=== PATIENT | male | born 1960 | race Hispanic/Latino ===

== ENCOUNTER 2025-02-16 19:40 | Emergency (ER) | payer SELFPAY ==
[~2025-02-16] VITALS: Ht 180.3 cm; Wt 83.0 kg
--- NOTE | 2025-02-16 19:50 | ERN ---
General Chief Complaint: Suicidal Ideation Stated Complaint: C/O SUICIDAL IDEATION Time Seen by MD: 19:42 Source: patient History of Present Illness Initial Comments Patient is a 64-year-old male coming in depression anxiety suicidal ideation. Per patient he does not have a plan but this has been ongoing for three years. States he recently retired were feels very lonely and has been contemplating suicide long with the as he states he fell earlier in his experiencing chest pain as well. Allergies: Coded Allergies: No Known Drug Allergies (Verified Allergy, 02/27/13) ROS Dictation CONSTITUTIONAL: No chills, no fever, no weakness, no diaphoresis, no malaise. HEAD/FACE: No signs of trauma. EENT: No eye pain, no blurred vision, no tearing, no double vision, no ear pain, no ear discharge, no nose pain, no nasal congestion, no throat pain, no throat swelling, no mouth pain. RESPIRATORY: No cough, no orthopnea, no SOB, no stridor, no wheezing. CARDIOVASCULAR: No chest pain, no edema, no palpitations, no syncope. GASTROINTESTINAL/ABDOMINAL: No abdominal pain, no constipation, no diarrhea, no nausea, no vomiting. GENITOURINARY: No abnormal discharge, no dysuria, no frequent urination, no hematuria. No complaints of pain in the genitals. MUSCULOSKELETAL: No back pain, no gout, no joint pain, no joint swelling, no muscle pain, no muscle stiffness, no neck pain. INTEGUMENTARY: No change in color, no change in hair/nails, no dryness, no lesion, no lumps, no rash. NEUROLOGICAL/PSYCH: No anxiety, not depressed, no emotional problem, no headache, no numbness, no pre-existing deficit, no history of seizures, no tremors, no weakness. HEMATOLOGIC/LYMPHATIC: Not anemic, no history of blood clots, no apparent bleeding, no bruising, glands not swollen. All Systems Negative, Except as Noted. Physical Exam Physical Exam Dictation CONSTITUTIONAL: No chills, no fever, no weakness, no diaphoresis, no malaise. HEAD/FACE: No signs of trauma. EENT: No eye pain, no blurred vision, no tearing, no double vision, no ear pain, no ear discharge, no nose pain, no nasal congestion, no throat pain, no throat swelling, no mouth pain. RESPIRATORY: No cough, no orthopnea, no SOB, no stridor, no wheezing. CARDIOVASCULAR: No chest pain, no edema, no palpitations, no syncope. GASTROINTESTINAL/ABDOMINAL: No abdominal pain, no constipation, no diarrhea, no nausea, no vomiting. GENITOURINARY: No abnormal discharge, no dysuria, no frequent urination, no hematuria. No complaints of pain in the genitals. MUSCULOSKELETAL: No back pain, no gout, no joint pain, no joint swelling, no muscle pain, no muscle stiffness, no neck pain. INTEGUMENTARY: No change in color, no change in hair/nails, no dryness, no lesion, no lumps, no rash. NEUROLOGICAL/PSYCH: No anxiety, not depressed, no emotional problem, no headache, no numbness, no pre-existing deficit, no history of seizures, no tremors, no weakness. HEMATOLOGIC/LYMPHATIC: Not anemic, no history of blood clots, no apparent bleeding, no bruising, glands not swollen. All Systems Negative, Except as Noted. Results Laboratory and Microbiology Lab and Micro Result Laboratory Tests Test 02/16/25 19:59 02/16/25 21:06 White Blood Count 4.0 K/uL (4.8-10.8) L Red Blood Count 4.27 MIL/uL (4.50-6.20) L Hemoglobin 13.6 g/dL (14.0-18.0) L Hematocrit 39.9 % (42-54) L Mean Corpuscular Volume 93.4 fL (79-99) Mean Corpuscular Hemoglobin 31.9 pg (27.0-33.0) Mean Corpuscular Hemoglobin Concent 34.1 g/dL (32.0-36.0) Red Cell Distribution Width 15.6 % (11.0-15.5) H Platelet Count 194 K/uL (130-400) Mean Platelet Volume 9.8 fL (7.5-10.5) Immature Granulocyte % (Auto) 0.2 % (0-1) Neutrophils (%) (Auto) 41.4 % (40.0-77.0) Lymphocytes (%) (Auto) 35.2 % (21.0-51.0) Monocytes (%) (Auto) 20.0 % (3.0-13.0) H Eosinophils (%) (Auto) 1.5 % (0.0-8.0) Basophils (%) (Auto) 1.7 % (0.0-5.0) Neutrophils # (Auto) 1.7 K/uL (1.8-7.7) L Lymphocytes # (Auto) 1.4 K/uL (1.0-4.8) Monocytes # (Auto) 0.8 K/uL (0.1-1.0) Eosinophils # (Auto) 0.06 K/uL (0.00-0.70) Basophils # (Auto) 0.07 K/uL (0.00-0.20) Absolute Immature Granulocyte (auto 0.01 K/uL (0-1) Nucleated Red Blood Cells 0.0 % (0.0-0.19) White Cell Morphology Comment See comments Sodium Level 137 mmol/L (136-145) Potassium Level 4.0 mmol/L (3.5-5.1) Chloride Level 98 mmol/L (101-111) L Carbon Dioxide Level 25 mmol/L (21-32) Blood Urea Nitrogen 7 mg/dL (7-18) Creatinine 0.6 mg/dL (0.5-1.3) Glomerular Filtration Rate Calc 108 mL/min (>90) Random Glucose 101 mg/dL (70-105) Total Calcium 8.2 mg/dL (8.5-10.1) L Total Creatine Kinase 85 U/L (21-232) # Troponin I High Sensitivity 7 ng/L (4-75) Salicylates Level < 2.8 mg/dL (2.8-20.0) L Acetaminophen Level < 1 mcg/mL (10-29) L Serum Alcohol 350 mg/dL (0-10) H Urine Opiates Screen NEGATIVE (NEGATIVE) Urine Barbiturates Screen NEGATIVE (NEGATIVE) Urine Phencyclidine Screen NEGATIVE (NEGATIVE) Urine Amphetamines Screen NEGATIVE (NEGATIVE) Urine Benzodiazepines Screen NEGATIVE (NEGATIVE) Urine Cocaine Screen NEGATIVE (NEGATIVE) Urine Marijuana (THC) Screen NEGATIVE (NEGATIVE) Labs Reviewed?: Yes EKG/XRAY/US/CT/MRI EKG Comment 02/16/2025 time 7:15 p.m. Ventricular rate 83 Sinus rhythm [place] [address] wave elevation or depression X-RAY Comment [address] [place] [id number] IMAGING REPORT Signed PATIENT: CACHORRO SHERIFF MR#: [id number] : 1960 SEX: M AGE: 64 LOCATION: ED ORDER 45 STATUS: REG ER [facility] REPORT#: [id number] SERVICE 44 REASON: cp ORDERING PHYSICIAN: AGUSTIN NANCE MD PROCEDURE: CXR1VW - CHEST 1VW EXAM: Chest radiograph 1 view HISTORY: Chest pain COMPARISON: None FINDINGS: Right basilar airspace disease. No large pleural effusion or pneumothorax. Normal cardiac silhouette. No overt congestion. Degenerative changes. IMPRESSION: Right basilar airspace disease possibly representing atelectasis or pneumonia. /[place] DICTATED BY: JOSE JAMES MD DATE: 02/16/252202 ELECTRONICALLY SIGNED BY: JOSE JAMES MD DATE: 02/16/252202 CT Scan Comment IMAGING REPORT Signed PATIENT: CACHORRO SHERIFF MR#: [id number] : 1960 SEX: M AGE: 64 LOCATION: ED ORDER 45 STATUS: REG ER REPORT#: [id number] SERVICE 44 REASON: fall ORDERING PHYSICIAN: AGUSTIN NANCE MD PROCEDURE: HEAD WO - CT HEAD/BRAIN W/O CONTRAST EXAM: CT Head Without IV contrast. CLINICAL HISTORY: Patient presents after a fall. TECHNIQUE: Axial computed tomography images of the head/brain without intravenous contrast. COMPARISON: None provided. FINDINGS: BRAIN: Periventricular hypodensities consistent with chronic microangiopathic ischemic changes. Mild diffuse cerebral atrophy characterized by prominence of the cortical sulci, basal cisterns, and bilateral sylvian fissures. No acute hemorrhage, mass lesion, acute territorial infarct, midline shift, or extra-axial collection. VENTRICLES: No hydrocephalus. ORBITS: The orbits are unremarkable. SINUSES AND MASTOIDS: The paranasal sinuses and mastoid air cells are clear. BONES: No fracture. SOFT TISSUES: Unremarkable. IMPRESSION: Chronic microangiopathic ischemic changes. Mild diffuse cerebral atrophy. No acute intracranial abnormality. /[place] DICTATED BY: MOHSEN MATHEW Jr., MD DATE: 02/16/252213 ELECTRONICALLY SIGNED BY: MOHSEN MATHEW Jr., MD DATE: 02/16/252213 MDM MDM: Differential diagnosis: ALCOHOL INTOXICATION, SUICIDAL IDEATION, PSYCHIATRIC ILLNESS, Rationale: Tests considered and ordered secondary to shared decision making include: Previous outside records reviewed: Old ER visits. Risk of complication and/or morbidity or mortality of patient management: None Medications-Per medication reconciliation Need for hospitalization: Patient does not meet criteria for hospitalization. Need for emergency major/minor surgery: No There are no social concerns with this patient. Prescription drug management Prescriptions will include symptomatic care Patient's prior external medical records from other ER visits were reviewed by me as indicated. Prior testing and results from previous visits were reviewed. Prior tests were taken into account with medical decision making and resource utilization, independent historian/historians were used to obtain complete medical history. I independently interpreted the test that were performed, results were reviewed by me and considered findings on radiology if ordered. Medical management and examination interpretation discussions were had by me with other qualified healthcare professionals as indicated for the patient's care. WAS NURSING STAFF THE PATIENT ELOPED PENDING PSYCH EVALUATION. ED Course Orders Procedure Category Date Status Time Cbc With Differential LAB 02/16/25 Complete 19:45 Alcohol, Blood LAB 02/16/25 Complete 19:45 Salicylate LAB 02/16/25 Complete 19:45 Acetaminophen LAB 02/16/25 Complete 19:45 Chest 1vw RAD 02/16/25 Resulted 19:45 12 Lead Ekg Tracing- EKG 02/16/25 Complete Technical 19:45 Creatine Kinase, Total LAB 02/16/25 Complete 19:45 Basic Metabolic Panel LAB 02/16/25 Complete 19:45 Ct Head/Brain W/O CT 02/16/25 Resulted Contrast 19:45 Troponin I High LAB 02/16/25 Complete Sensitivity 19:45 Diazepam 2 Mg Tab PHA 02/16/25 Complete (Valium 2 Mg Tab) 20:30 Drug Screen Urine LAB 02/16/25 Complete 20:48 0.9%Nacl 1000ml (Ns PHA 02/16/25 Complete 1000ml) 21:30 Current Medications Medications (Trade) Dose Ordered Sig/Hu Route PRN Reason Start Time Stop Time Status Last Admin Dose Admin Diazepam (VALium 2 mg Tab) 2 mg ONCE PO 02/16/25 20:30 02/16/25 22:30 DC 02/16/25 20:18 Sodium Chloride 1,000 ml @ 0 mls/hr ONCE ONCE IV 02/16/25 21:30 02/16/25 21:31 DC Vital Signs Date Time Temp Pulse Resp B/P (MAP) Pulse Ox O2 Delivery O2 Flow Rate FiO2 02/16/25 22:06 97.5 74 16 130/88 98 Room Air* 0 21 02/16/25 19:42 97.2 77 20 139/91 97 Room Air DX & DISP Disposition: AMA Departure Impression: Primary Impression: Alcohol intoxication Additional Impressions: Head injury, Psychiatric illness Condition: Against Medical Advice Additional Instructions: WAS ADVISED BY NURSING STAFF THE PATIENT ELOPED LAW ENF[employer]CEMENT SENT TO [facility] FOR CHECKED FURTHER EVALUATION, THOUGHT HER SUPPORT RESPONSIBILITY PATIENT Referrals: CACHORRO SKAGGS (PCP) AGUSTIN NANCE MD Feb 16, 2025 19:50
--- NOTE | 2025-02-16 19:57 | EKG ---
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
[2025-02-16 20:06] LABS: IMMATURE GRANULOCYTE ABSOLUTE 0.01 K/uL (0-1); NUCLEATED RED BLOOD CELLS 0.0 % (0.0-0.19); PLATELET COUNT (AUTO) 194 K/uL (130-400); RED BLOOD CELL COUNT(AUTO) 4.27 MIL/uL (4.50-6.20); RED CELL DISTRIBUTION WIDTH 15.6 % (11.0-15.5); WHITE BLOOD COUNT (AUTO) 4.0 K/uL (4.8-10.8)
[2025-02-16 20:16] LABS: CREATININE 0.6 mg/dL (0.5-1.3); GLOMERULAR FILTR. RATE CALC 108 mL/min (>90); GLUCOSE,RANDOM 101 mg/dL (70-105); SODIUM SERUM 137 mmol/L (136-145); UREA NITROGEN, BLOOD 7 mg/dL (7-18)
[2025-02-16] MEDS: diazePAM 2 MG TAB PO SCH (20:18)
[2025-02-16 20:28] LABS: ALCOHOL, BLOOD 350 mg/dL (0-10); CREATINE KINASE, TOTAL 85 U/L (21-232)
--- NOTE | 2025-02-16 21:04 | HMCIMG ---
EXAM: Chest radiograph 1 view HISTORY: Chest pain COMPARISON: None FINDINGS: Right basilar airspace disease. No large pleural effusion or pneumothorax. Normal cardiac silhouette. No overt congestion. Degenerative changes. IMPRESSION: Right basilar airspace disease possibly representing atelectasis or pneumonia. /[place]
--- NOTE | 2025-02-16 21:14 | HMCIMG ---
EXAM: CT Head Without IV contrast. CLINICAL HISTORY: Patient presents after a fall. TECHNIQUE: Axial computed tomography images of the head/brain without intravenous contrast. COMPARISON: None provided. FINDINGS: BRAIN: Periventricular hypodensities consistent with chronic microangiopathic ischemic changes. Mild diffuse cerebral atrophy characterized by prominence of the cortical sulci, basal cisterns, and bilateral sylvian fissures. No acute hemorrhage, mass lesion, acute territorial infarct, midline shift, or extra-axial collection. VENTRICLES: No hydrocephalus. ORBITS: The orbits are unremarkable. SINUSES AND MASTOIDS: The paranasal sinuses and mastoid air cells are clear. BONES: No fracture. SOFT TISSUES: Unremarkable. IMPRESSION: Chronic microangiopathic ischemic changes. Mild diffuse cerebral atrophy. No acute intracranial abnormality. /[place]
[2025-02-16 21:30] LABS: AMPHET/METH SCREEN,URINE NEGATIVE (NEGATIVE); BARBITURATE SCREEN, URINE NEGATIVE (NEGATIVE); CANNABINOID SCREEN,URINE NEGATIVE (NEGATIVE); COCAINE SCREEN,URINE NEGATIVE (NEGATIVE)
--- NOTE | 2025-02-16 22:00 | NUR ---
PATIENT DOES NOT WANT TO SPEAK TO SCREENER. DAUGHTERS ARE AT BEDSIDE, AGUSTINASHELY SHERIFF AND SEEMA MAN. BOTH SIGNED AMA FORM, PATIENT WILL BE GOING HOME WITH THEM.
[2025-02-16] MEDS: 0.9%NACL 1000ML 1,000 ML IV ONE (22:03)
[2025-02-16 22:06] VITALS: BP 130/88; PULSE 74; RESP 16; TEMP 97.6; O2SAT 98
--- NOTE | 2025-02-16 22:10 | NUR ---
D CALLED FOR WELLFAIR CHECK, PER [facility], PATIENT ADDRESS BELONGS TO [facility].
--- NOTE | 2025-02-16 22:21 | NUR ---
[facility] CALLED FOR WELL FAIR CHECK. THEY WILL SEND OFFICER OUT TO CHECK ON PATIENT
--- NOTE | 2025-02-16 22:36 | NUR ---
RECIEVED A PHONE CALL FROM JASON SANCHEZ. OFFICER AT PATIENTS HOME AND WILL CALL ME WITH AN UPDATE
--- NOTE | 2025-02-16 22:45 | NUR ---
PER OFFICER MAT WITH JASON SANCHEZ, MR SHERIFF WAS "STILL AMONG US", THE GRANDDAUGHTER FOR MR SHERIFF WAS STAYING WITH HIM TONIGHT AND THE DAUGHTER WOULD BE THERE SHORTLY TO STAY THE NIGHT WELL.
== END 2025-02-16 22:29 | disposition left against medical advice (07) ==
LOC: EDH 19:40
DX: S09.90XA Unspecified injury of head, initial encounter (principal); F10.129 Alcohol abuse with intoxication, unspecified; F99 Mental disorder, not otherwise specified; Y90.9 Presence of alcohol in blood, level not specified; W18.39XA Other fall on same level, initial encounter; Y93.89 Activity, other specified; Y92.89 Other specified places as the place of occurrence of the external cause; Y99.8 Other external cause status
CPT/HCPCS: 99285; 70450; 71045; 82550; 84484; 80048; 80305; 85025; 36415; 93005; G0481